=== PATIENT | female | born 1955 | race Caucasian/White ===

== ENCOUNTER 2017-07-29 16:29 | Observation (INO) | payer OTHER ==
[~2017-07-29] VITALS: Ht 160 cm; Wt 66.0 kg
[2017-07-29 16:31] VITALS: BP 166/97; PULSE 65; RESP 16; TEMP 98.5; O2SAT 98
[2017-07-29] MEDS ORDERED: MULTTAB67 PO (17:02)
[2017-07-29] MEDS ORDERED: SACC1CAP3 PO (17:02)
[2017-07-29] MEDS ORDERED: FAMO1CHW (17:02)
[2017-07-29 17:41] VITALS: BP 166/97; PULSE 65; RESP 18; TEMP 98.5; O2SAT 97; O2SAT 98
[2017-07-29] MEDS ORDERED: SODIUM CHLORIDE 0.9% FLUSH 10 ML FLUSH IVF PRN (17:45)
--- NOTE | 2017-07-29 17:54 | PD ---
HPI Chief Complaint: Cardiac Complaint Time Seen by Provider: 17:02 Travel History International Travel<30 days: No Contact w/Intl Traveler<30days: No Traveled to known affect area: No History of Present Illness HPI 62-year-old female came to the emergency room with history of chest pressure along with palpitations, bilateral upper extremity weakness, feeling of out of body experience all happening at the same time episodically over past 1 year. However patient says that this has been progressively worsening in terms of the frequency. She had these episodes 2-3 times and last one week which is far more frequent than it has been in past 1 year which has concerned her. She also has this chest pressure on the left side which has persisted which is new. Usually all the symptoms along with chest pressure goes away after 20 minutes. Her is here who had witnessed one of these episodes last night. As per him she was laying on the kitchen countertop with her arm spread out and head down and when he tried to talk to her she was not speaking. Patient says that she could hear him but she was unable to talk or communicate. Patient did talk to her primary care 6 months ago about the symptoms and the primary care has asked her to get a stress test. However patient never got to a boom pump operator. Patient is not a smoker. There is a family history of [place] history among her grandparents. [facility] Past Medical History Narrative Medical List of her past medical, surgical, social and family history is reviewed from the nursing note. Diverticulitis: Yes Kidney Stones: Yes Ulcer: Yes Tetanus Vaccination: < 5 Years Influenza Vaccination: Yes Ovarian Cysts: Yes Social History Alcohol Use: Yes (OCC) Tobacco Use: No Substance Use: No Allergies-Medications (Allergen,Severity, Reaction): Coded Allergies: oxycodone (Verified Allergy, Unknown, 07/29/17) Comments List of her allergies reviewed from the nursing note. Reported Meds & Prescriptions Reported Meds & Active Scripts Active Reported Probiotic (Saccharomyces Boulardii) 250 Mg Cap 250 Mg PO BID Acid Pharmacist In Charge Owner Complete (Raticmghpw-[id number]-[id number]) 10-800-165 mg Tab Multiple Vitamin 1 Tab 1 Tab PO DAILY Narrative Medication List of her home medications reviewed from the nursing note. Review of Systems Except as stated in HPI: all other systems reviewed are Neg HENT: Positive: Headaches Cardiovascular: Positive: Chest Pain or Discomfort, Palpitations Neurologic: Positive: Weakness Physical Exam Narrative GENERAL: Awake, alert, anxious, mild distress SKIN: Focused skin assessment warm/dry. HEAD: Atraumatic. Normocephalic. EYES: Pupils equal and round. No scleral icterus. No injection or drainage. ENT: No nasal bleeding or discharge. Mucous membranes pink and moist. NECK: Trachea midline. No JVD. Neck is supple CARDIOVASCULAR: Regular rate and rhythm. No murmur appreciated. RESPIRATORY: No accessory muscle use. Clear to auscultation. Breath sounds equal bilaterally. GASTROINTESTINAL: Abdomen soft, non-tender, nondistended. Hepatic and splenic margins not palpable. MUSCULOSKELETAL: No obvious deformities. No clubbing. No cyanosis. No edema. NEUROLOGICAL: Awake and alert. No obvious cranial nerve deficits. Motor grossly within normal limits. Normal speech. PSYCHIATRIC: Appropriate mood and affect; insight and judgment normal. Data Data Last Documented VS Orders Orders Electrocardiogram (07/29/17 17:39) Basic Metabolic Panel (Bmp) (07/29/17 17:39) Ckmb (Isoenzyme) Profile (07/29/17 17:39) Complete Blood Count With Diff (07/29/17 17:39) Magnesium (Mg) (07/29/17 17:39) Prothrombin Time / Inr (Pt) (07/29/17 17:39) Act Partial Throm Time (Ptt) (07/29/17 17:39) Troponin I (07/29/17 17:39) Chest, Single Ap (07/29/17 17:39) Ecg Monitoring (07/29/17 17:39) Bilateral Bp Monitoring (07/29/17 17:39) Iv Access Insert/Monitor (07/29/17 17:39) Oximetry (07/29/17 17:39) Oxygen Administration (07/29/17 17:39) Sodium Chloride 0.9% Flush (Ns Flush) (07/29/17 17:45) Ct Brain W/O Iv Contrast(Rout) (07/29/17 ) Ct Cerv Spine W/O Contrast (07/29/17 ) Admit Order (Ed Use Only) (07/29/17 19:48) Labs Laboratory Tests Test 07/29/17 17:15 White Blood Count 6.7 TH/MM3 Red Blood Count 4.29 MIL/MM3 Hemoglobin 13.9 GM/DL Hematocrit 40.5 % Mean Corpuscular Volume 94.3 FL Mean Corpuscular Hemoglobin 32.5 PG Mean Corpuscular Hemoglobin Concent 34.5 % Red Cell Distribution Width 12.6 % Platelet Count 226 TH/MM3 Mean Platelet Volume 8.0 FL Neutrophils (%) (Auto) 53.7 % Lymphocytes (%) (Auto) 34.4 % Monocytes (%) (Auto) 9.0 % Eosinophils (%) (Auto) 2.4 % Basophils (%) (Auto) 0.5 % Neutrophils # (Auto) 3.6 TH/MM3 Lymphocytes # (Auto) 2.3 TH/MM3 Monocytes # (Auto) 0.6 TH/MM3 Eosinophils # (Auto) 0.2 TH/MM3 Basophils # (Auto) 0.0 TH/MM3 CBC Comment DIFF FINAL Differential Comment Prothrombin Time 10.4 SEC Prothromb Time International Ratio 0.9 RATIO Activated Partial Thromboplast Time 26.8 SEC Blood Urea Nitrogen 18 MG/DL Creatinine 0.85 MG/DL Random Glucose 84 MG/DL Calcium Level 9.0 MG/DL Magnesium Level 1.9 MG/DL Sodium Level 139 MEQ/L Potassium Level 3.9 MEQ/L Chloride Level 105 MEQ/L Carbon Dioxide Level 28.1 MEQ/L Anion Gap 6 MEQ/L Estimat Glomerular Filtration Rate 68 ML/MIN Total Creatine Kinase 75 U/L Troponin I LESS THAN 0.02 NG/ML Thyroid Stimulating Hormone 3rd Gen 5.660 uIU/ML [facility] Medical Decision Making Medical Screen Exam Complete: Yes Emergency Medical Condition: Yes Medical Record Reviewed: Yes Interpretation(s) Twelve-lead EKG was reviewed by me. Normal sinus rhythm, normal axis, nonspecific ST-T wave changes. Heart rate of 60 bpm. Differential Diagnosis ACS, arrhythmia, seizure Narrative Course 7:46 PM blood test results of back and within normal limits. Chest x-ray showed left lower lobe atelectasis as per the radiologist. I have ordered CT scan of her head and C-spine. Patient has been admitted to the hospitalist service. In my opinion she should be evaluated by the boom pump operator as well as neurologist for possible cardiac and or neurologic etiology. Procedures EKG Prior to Arrival: No Diagnosis Primary Impression: Atypical chest pain Additional Impression: Near syncope Admitting Information Admitting Physician Requests: Observation Christine Peña MD Jul 29, 2017 17:54
[2017-07-29 17:57] LABS: AUTOMATED NEUTROPHIL # 3.6 TH/MM3 (1.8-7.7); BASOPHIL % 0.5 % (0.0-2.0); EOSINOPHIL # 0.2 TH/MM3 (0-0.4); EOSINOPHIL % 2.4 % (0.0-4.0); HEMATOCRIT 40.5 % (35.0-46.0); HEMO FLAGS DIFF FINAL; LYMPH % 34.4 % (9.0-44.0); LYMPHOCYTE # 2.3 TH/MM3 (1.0-4.8); MEAN CELL VOLUME 94.3 FL (80.0-100.0); MEAN CORPUSCULAR HEMOGLOBIN 32.5 PG (27.0-34.0); MEAN CORPUSCULAR HGB CONC 34.5 % (32.0-36.0); NEUT % 53.7 % (16.0-70.0); PLATELET COUNT 226 TH/MM3 (150-450); RED BLOOD COUNT 4.29 MIL/MM3 (4.00-5.30); RED CELL DISTRIBUTION WIDTH 12.6 % (11.6-17.2); WHITE BLOOD COUNT 6.7 TH/MM3 (4.0-11.0)
--- NOTE | 2017-07-29 18:06 | RADRPT ---
EXAM DATE/TIME: 07/29/2017 17:52 [facility] COMPARISON: No previous studies available for comparison. INDICATIONS : Chest pain and shortness of breath. MEDICAL HISTORY : None. SURGICAL HISTORY : None. ENCOUNTER: Initial ACUITY: 2 days PAIN SCORE: 6/10 LOCATION: Bilateral upper chest FINDINGS: There is slight hazy opacity at the lateral left lung base and minimal blunting of the gastric angle. This may reflect mild infiltrate. Right lung is clear. Cardiac contours are satisfactory for techniq ue and projection. CONCLUSION: Minimal left base pleural-parenchymal opacity Jon Encarnacion MD on July 29, 2017 at 18:03 Board Certified Radiologist. This report was verified electronically.
[2017-07-29 18:16] LABS: APTT (PATIENT) 26.8 SEC (24.3-30.1); INTERNATIONAL NORMALIZED RATIO 0.9 RATIO; PROTHROMBIN TIME - PATIENT 10.4 SEC (9.8-11.6)
[2017-07-29 18:18] LABS: ANION GAP 6 MEQ/L (5-15); BICARBONATE 28.1 MEQ/L (21.0-32.0); BLOOD UREA NITROGEN 18 MG/DL (7-18); CHLORIDE 105 MEQ/L (98-107); GLOMERULAR FILTRATION RATE 68 ML/MIN (>89); MAGNESIUM 1.9 MG/DL (1.5-2.5); POTASSIUM 3.9 MEQ/L (3.5-5.1); SODIUM (NA) 139 MEQ/L (136-145)
[2017-07-29 18:23] LABS: CREATINE KINASE 75 U/L (26-192)
--- NOTE | 2017-07-29 20:12 | RADRPT ---
EXAM DATE/TIME: 07/29/2017 19:51 [facility] COMPARISON: No previous studies available for comparison. INDICATIONS : Syncopal episodes. RADIATION DOSE: 56.35 CTDIvol (mGy) MEDICAL HISTORY : Diverticulitis. Renal calculi. SURGICAL HISTORY : None. ENCOUNTER: Initial ACUITY: 1 day PAIN SCALE: 5/10 LOCATION: cranial TECHNIQUE: Multiple contiguous axial images were obtained of the head. Using automated exposure control and adj ustment of the mA and/or kV according to patient size, radiation dose was kept as low as reasonably a chievable to obtain optimal diagnostic quality images. DICOM format image data is available electro nically for review and comparison. FINDINGS: CEREBRUM: Minimal areas of low attenuation in the white matter including right parietal lobe. The ventricles ar e normal for age. No evidence of midline shift, mass lesion, hemorrhage or acute infarction. No ext ra-axial fluid collections are seen. POSTERIOR FOSSA: The cerebellum and brainstem are intact. The 4th ventricle is midline. The cerebellopontine angle i s unremarkable. EXTRACRANIAL: The visualized portion of the orbits is intact. SKULL: The calvaria is intact. No evidence of skull fracture. CONCLUSION: Nonspecific white matter changes. No acute intracranial abnormality. Toy Townsend MD on July 29, 2017 at 20:10 Board Certified Radiologist. This report was verified electronically.
--- NOTE | 2017-07-29 20:16 | RADRPT ---
EXAM DATE/TIME: 07/29/2017 19:53 [facility] COMPARISON: No previous studies available for comparison. INDICATIONS : Syncopal episodes. Bilateral arm numbness. RADIATION DOSE: 32.08 CTDIvol (mGy) MEDICAL HISTORY : Diverticulitis. Renal calculi. SURGICAL HISTORY : None. ENCOUNTER: Initial ACUITY: 1 day PAIN SCALE: 5/10 LOCATION: Bilateral arms TECHNIQUE: Volumetric scanning of the cervical spine was performed. Multiplanar reconstructions in the sagittal, coronal and oblique axial planes were performed. Using automated exposure control and adjustment o f the mA and/or kV according to patient size, radiation dose was kept as low as reasonably achievable to obtain optimal diagnostic quality images. DICOM format image data is available electronically f or review and comparison. FINDINGS: VERTEBRAE: Normal vertebral body height. Degenerative changes. ALIGNMENT: No evidence of subluxation. C2-C3: The bony spinal canal is normal in size. No evidence of disc bulge or herniation. The neural forami na are bilaterally patent. C3-C4: The bony spinal canal is normal in size. No evidence of disc bulge or herniation. The neural forami na are bilaterally patent. C4-C5: The bony spinal canal is normal in size. No evidence of disc bulge or herniation. The neural forami na are bilaterally patent. C5-C6: Mild broad-based posterior disc osteophyte complex without canal stenosis. The neural foramina are b ilaterally patent. C6-C7: Mild broad-based posterior disc osteophyte complex without canal stenosis. The neural foramina are b ilaterally patent. C7-T1: The bony spinal canal is normal in size. No evidence of disc bulge or herniation. The neural forami na are bilaterally patent. CONCLUSION: 1. Degenerative changes. 2. No fracture. Toy Townsend MD on July 29, 2017 at 20:12 Board Certified Radiologist. This report was verified electronically.
[2017-07-29] MEDS ORDERED: SODIUM CHLORIDE 0.9% FLUSH 10 ML FLUSH IV FLUSH PRN (20:30)
[2017-07-29] MEDS ORDERED: ALPRAZolam 0.25 MG TAB PO PRN (20:30)
[2017-07-29] MEDS ORDERED: NITROGLYCERIN 0.4 MG SL 25 TABS/BTL SL PRN (20:30)
[2017-07-29 20:37] VITALS: BP 167/86; PULSE 63; RESP 14; O2SAT 96
--- NOTE | 2017-07-29 20:37 | HHI.HP ---
HPI Service [facility] Hospitalists Primary Care Physician Fatou Obregon M.D. Admission Diagnosis atypical chest pain, near-syncope Chief Complaint: light headedness, chest pain, palpitations (all intermittent) Travel History International Travel<30 Days: No Contact w/Intl Traveler <30 Da: No Traveled to Known Affected Are: No History of Present Illness 62-year-old female came to the emergency room with history of chest pressure along with palpitations, bilateral upper extremity weakness, feeling of out of body experience all happening at the same time episodically over past 9 mos to 1 yr. However patient says that this has been progressively worsening in terms of the frequency. She had these episodes 2-3 times and last one week which is far more frequent than it has been in past 1 year which has concerned her. She also has this chest pressure on the left side which has persisted which is new. Usually all the symptoms along with chest pressure goes away after 20 minutes. Her is here who had witnessed one of these episodes last night. As per him she was laying on the kitchen countertop with her arm spread out and head down and when he tried to talk to her she was not speaking. Patient says that she could hear him but she was unable to talk or communicate. Patient was evaluated for similar complaints particularly of the palpitation and near syncope character back in March of this year. EKG and chest x-ray done at that time revealed no acute findings. She was referred to cardiology that time for further evaluation but apparently has not followed through as I see no evidence in outpatient records of this. Patient is not a smoker currently but did smoke in the past. Workup done thus far in ER reveals no acute finding on CT brain or CT cervical spine. She does have some nonspecific white matter changes on CT brain. EKG with no significant abnormalities. Chest x-ray revealed some vague minimal pleural parenchymal opacity on the left. Review of outpatient chest x-ray reveals possible infiltrate on the left in July 2016 with resolution on x-ray done March 2017. Review of Systems Constitutional: COMPLAINS OF: Fatigue, Dizziness, DENIES: Diaphoretic episodes , Fever, Weight gain, Weight loss, Chills, Change in appetite, Night Sweats Eyes: COMPLAINS OF: Vision loss, DENIES: Blurred vision, Diplopia, Eye inflammation, Eye pain, Photosensitivity, Double Vision Ears, nose, mouth, throat: DENIES: Tinnitus, Hearing loss, Vertigo, Nasal discharge, Oral lesions, Throat pain, Hoarseness, Ear Pain, Running Nose, Epistaxis, Sinus Pain, Toothache, Odynophagia Respiratory: DENIES: Apneas, Cough, Snoring, Wheezing, Hemoptysis, Sputum production, Shortness of breath Cardiovascular: COMPLAINS OF: Chest pain, Palpitations, DENIES: Syncope, Dyspnea on Exertion, PND, Lower Extremity Edema, Orthopnea, Claudication Gastrointestinal: DENIES: Abdominal pain, Black stools, Bloody stools, BRB per rectum, Constipation, Diarrhea, GERD, Nausea, Reflux, Vomiting, Difficulty Swallowing, Anorexia, See HPI Musculoskeletal: COMPLAINS OF: Joint pain, Back pain Hematologic/lymphatic: DENIES: Bruising, Lymphadenopathy Immunologic/allergic: DENIES: Eczema, Urticaria Neurologic: DENIES: Abnormal gait, Headache, Localized weakness, Paresthesias, Seizures, Speech Problems, Tremor, Poor Balance Psychiatric: COMPLAINS OF: Anxiety Other Near syncope Past Family Social History Past Medical History Abdominal pain in multiple sites of unclear etiology Anemia Bacterial vaginosis Cervical radiculopathy Female pelvic pain Gastritis History of HPV test positive Dyslipidemia Near syncope Palpitations Pneumonitis Thrombocytosis with prior thrombocytopenia which has been evaluated by hematology 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 Nephrolithiasis Past Surgical History Ovarian cystectomy Labial tumor removal Reported Medications Calcium citrate 150 mg 1 capsule daily Cimetidine 200 mg 1 tablet daily Probiotic 1 capsule twice daily Allergies: Coded Allergies: oxycodone (Verified Allergy, Unknown, 07/29/17) Family History Father had cardiac arrest as the etiology of his demise Sister had asthma Sister had hypertension Social History No tobacco approximately 10 years but prior to that smoked 3/4-1 pack per day for nearly 20 years Drinks approximately 1 glass of wine 3 times a week Denies illicit drug use Lives with her fianc and her adult son and his girlfriend 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 No acute distress, alert and oriented. SKIN: No rashes, ecchymoses or lesions. Cool and dry. Lipoma right posterior shoulder HEAD: Atraumatic. Normocephalic. No temporal or scalp tenderness. EYES: Pupils equal round and reactive. Extraocular motions intact. No scleral icterus. No injection or drainage. ENT: Nose without bleeding, purulent drainage or septal hematoma. Airway patent. NECK: Trachea midline. No JVD or lymphadenopathy. Supple, nontender, no meningeal signs. No bruit. CARDIOVASCULAR: Regular rate and rhythm without murmurs, gallops, or rubs. RESPIRATORY: Clear to auscultation. Breath sounds equal bilaterally. No wheezes , rales, or rhonchi. GASTROINTESTINAL: Abdomen soft, non-tender, nondistended. No hepato-splenomegaly , or palpable masses. No guarding. MUSCULOSKELETAL: Extremities without clubbing, cyanosis, or edema. No joint tenderness, effusion, or edema noted. No calf tenderness. NEUROLOGICAL: Awake and alert. Cranial nerves II through XII intact. Motor and sensory grossly within normal limits. Five out of 5 muscle strength in all muscle groups. Normal speech. Laboratory Laboratory Tests Test 07/29/17 17:15 White Blood Count 6.7 Red Blood Count 4.29 Hemoglobin 13.9 Hematocrit 40.5 Mean Corpuscular Volume 94.3 Mean Corpuscular Hemoglobin 32.5 Mean Corpuscular Hemoglobin Concent 34.5 Red Cell Distribution Width 12.6 Platelet Count 226 Mean Platelet Volume 8.0 Neutrophils (%) (Auto) 53.7 Lymphocytes (%) (Auto) 34.4 Monocytes (%) (Auto) 9.0 Eosinophils (%) (Auto) 2.4 Basophils (%) (Auto) 0.5 Neutrophils # (Auto) 3.6 Lymphocytes # (Auto) 2.3 Monocytes # (Auto) 0.6 Eosinophils # (Auto) 0.2 Basophils # (Auto) 0.0 CBC Comment DIFF FINAL Differential Comment Prothrombin Time 10.4 Prothromb Time International Ratio 0.9 Activated Partial Thromboplast Time 26.8 Blood Urea Nitrogen 18 Creatinine 0.85 Random Glucose 84 Calcium Level 9.0 Magnesium Level 1.9 Sodium Level 139 Potassium Level 3.9 Chloride Level 105 Carbon Dioxide Level 28.1 Anion Gap 6 Estimat Glomerular Filtration Rate 68 Total Creatine Kinase 75 Troponin I LESS THAN 0.02 Result Diagram: 07/29/17 1715 07/29/17 1715 Imaging Last 72 hours Impressions Chest X-Ray 07/29/17 1739 Signed Impressions: Service Date/Time: Saturday, July 29, 2017 17:52 - CONCLUSION: Minimal left base pleural-parenchymal opacity Jon Encarnacion MD Head CT 07/29/17 0000 Signed Impressions: Service Date/Time: Saturday, July 29, 2017 19:51 - CONCLUSION: Nonspecific white matter changes. No acute intracranial abnormality. Toy Townsend MD Cervical Spine CT 07/29/17 0000 Signed Impressions: Service Date/Time: Saturday, July 29, 2017 19:53 - CONCLUSION: 1. Degenerative changes. 2. No fracture. Toy Townsend MD Caprini VTE Risk Assessment Caprini VTE Risk Assessment: No/Low Risk (score <= 1) Caprini Risk Assessment Model Point Value = 1 Point Value = 2 Point Value = 3 Point Value = 5 Age 41-60 Minor surgery BMI > 25 kg/m2 Swollen legs Varicose veins or History of unexplained or recurrent spontaneous Oral contraceptives or hormone replacement Sepsis (< 1 month) Serious lung disease, including pneumonia (< 1 month) Abnormal pulmonary function Acute myocardial infarction Congestive heart failure (< 1 month) History of inflammatory bowel disease Medical patient at bed rest Age 61-74 Arthroscopic surgery Major open surgery (> 45 min) Laparoscopic surgery (> 45 min) Malignancy Confined to bed (> 72 hours) Immobilizing plaster cast Central venous access Age >= 75 History of VTE Family history of VTE Factor V Leiden Prothrombin [id number] Lupus anticoagulant Anticardiolipin antibodies Elevated serum homocysteine Heparin-induced thrombocytopenia Other congenital or acquired thrombophilia Stroke (< 1 month) Elective arthroplasty Hip, pelvis, or leg fracture Acute spinal cord injury (< 1 month) Prophylaxis Regimen Total Risk Factor Score Risk Level Prophylaxis Regimen 0-1 Low Early ambulation 2 Moderate Order ONE of the following: *Sequential Compression Device (SCD) *Heparin 5000 units SQ BID 3-4 Higher Order ONE of the following medications: *Heparin 5000 units SQ TID *Enoxaparin/Lovenox 40 mg SQ daily (WT < 150 kg, CrCl > 30 mL/min) *Enoxaparin/Lovenox 30 mg SQ daily (WT < 150 kg, CrCl > 10-29 mL/min) *Enoxaparin/Lovenox 30 mg SQ BID (WT < 150 kg, CrCl > 30 mL/min) AND/OR *Sequential Compression Device (SCD) 5 or more Highest Order ONE of the following medications: *Heparin 5000 units SQ TID (Preferred with Epidurals) *Enoxaparin/Lovenox 40 mg SQ daily (WT < 150 kg, CrCl > 30 mL/min) *Enoxaparin/Lovenox 30 mg SQ daily (WT < 150 kg, CrCl > 10-29 mL/min) *Enoxaparin/Lovenox 30 mg SQ BID (WT < 150 kg, CrCl > 30 mL/min) AND *Sequential Compression Device (SCD) Assessment and Plan Problem List: (1) Atypical chest pain ICD Codes: R07.89 - Other chest pain Status: Acute Plan: Has been an intermittent issue over the last several months but seems to be more frequent and long lasting of late. Initial enzymes and EKG did not reveal acute injury pattern. We'll continue rule out protocol and have cardiology see the patient given her other complaints. (2) Near syncope ICD Codes: R55 - Syncope and collapse Status: Chronic Plan: As noted above. We'll have neurology evaluate the patient as well since this is recurring and seems to be a bit more frequent The periods of somewhat unresponsiveness could be consistent with a partial seizure disorder. EEG has been ordered. CT brain noted for nonspecific white matter changes and she does have some vision changes. We'll have neurology decide if further eval for possible MS is indicated as inpatient. (3) Heart palpitations ICD Codes: R00.2 - Palpitations Status: Chronic Plan: As above. Cardiology to evaluate. Code Status Full Discussed Condition With Patient and ER provider Kaleb Almeida MD PhD Jul 29, 2017 20:37
[2017-07-29] MEDS: SODIUM CHLORIDE 0.9% FLUSH 10 ML FLUSH IV FLUSH SCH (21:25)
[2017-07-29 21:40] LABS: CREATINE KINASE 66 U/L (26-192)
[2017-07-29 21:46] VITALS: BP 138/76; PULSE 60; RESP 16; TEMP 97.5; O2SAT 96
[2017-07-29 22:41] VITALS: PULSE 56
[2017-07-30] VITALS (8 sets, daily range): BP systolic 121–137; BP diastolic 72–93; PULSE 53–75; RESP 18; TEMP 97.5–98.6; O2SAT 95–98
[2017-07-30 02:43] LABS: HDL CHOLESTEROL 87.1 MG/DL (40.0-60.0); LDL CHOLESTEROL 99 MG/DL (0-99)
[2017-07-30 02:49] LABS: CREATINE KINASE 57 U/L (26-192)
--- NOTE | 2017-07-30 04:57 | EKG ---
Date Performed: 07/29/2017 Time Performed: 21:14:59 PTAGE: 62 years EKG: SINUS BRADYCARDIA Nonspecific T wave changes No significant change from prior electrocardio gram. DOCTOR: Mook Guerrero Interpretating Date/Time 07/30/2017 04:56:29
--- NOTE | 2017-07-30 05:13 | EKG ---
Date Performed: 07/29/2017 Time Performed: 17:08:27 PTAGE: 62 years EKG: Sinus rhythm NORMAL ECG NO PREVIOUS TRACING DOCTOR: Mook Guerrero Interpretating Date/Time 07/30/2017 05:13:15
--- NOTE | 2017-07-30 08:24 | MB ---
cc: ALEXANDRE BAILEY MD DATE OF CONSULTATION 07/30/2017 HISTORY This is a 62-year-old woman who comes to the emergency department with a history of chest pain, palpitations and upper extremity weakness. These episodes have been happening over the past year. When they occur, she has an episode where she has rather intense palpitations, a feeling of lightheadedness or sweating and then what she describes as a paralysis which can last as long as five minutes. No loss of consciousness has been present. She usually stops what she is doing and episodes passed and then resolve, although she has approximately 24 hours of feeling different than her usual state. These have been infrequent starting a year ago, but since March have become more frequent and over the past month have occurred three separate times. The day before yesterday, she had an episode in which she had chest discomfort which she describes as not a sharp pain, but rather a dull ache. This persisted all day and through the night and then she came to emergency department because of concern about the pain. This was somewhat associated with shortness of breath and nausea. No exertional symptoms were present and she noted nothing that would precipitate or worsen her discomfort and certainly nothing that would relieve it. She has been very active, but has cut back on her activity level over the past year. She notes that she is in a stressful job and has put off medical care. Her episode yesterday was witnessed by her who apparently tried to talked to her and she stated that she could hear him, but she could not talk or communicate with him. PAST MEDICAL HISTORY Significant for kidney stones and diverticulitis for which she was hospitalized a year ago. She did not require surgery and no recurrence of that has been present time. MEDICATIONS She takes only Pepcid for medications. She denies any history of hypertension, diabetes or hyperlipidemia. She has noted that her blood pressure historically has been quite low, but over the past year has been elevated as high as 170. SOCIAL HISTORY She is a nonsmoker. She rarely drinks. She does not use recreational drugs. WORKUP Workup in the emergency room thus far reveals no acute findings on CT of her cervical spine. She had some nonspecific white matter changes on her CT of her brain. Electrocardiogram has been essentially normal and troponins are normal x3. TSH is normal. LDL and lipid profile are a very good with an LDL 92 and HDL of 87. Chest x-ray is otherwise unremarkable. ALLERGIES None PHYSICAL EXAMINATION She is awake and alert. She is in no acute distress. VITAL SIGNS: Her blood pressure is 120/70, pulse is 50 and regular. NECK: There is no neck vein distension. LUNGS: Clear. CARDIOVASCULAR: Regular rate and rhythm with no murmur or gallop noted. ASSESSMENT The patient has very atypical symptoms which actually sound more neurologic in nature than cardiologic. Certainly has atypical chest pain. We will do a treadmill exercise test to rule out occult coronary disease. Hopefully she will also get a neurologic evaluation and further recommendations will pend the outcome of those tests. I also ordered a D-dimer although doubt seriously that she has any problems with pulmonary emboli. MD GURVINDER Weber/MATHEUS /8:03 AM /8:12 AM
[2017-07-30] MEDS: SODIUM CHLORIDE 0.9% FLUSH 10 ML FLUSH IV FLUSH SCH (08:36)
[2017-07-30] MEDS ORDERED: ASPIRIN 81 MG CHEW TAB PO SCH (09:00)
--- NOTE | 2017-07-30 09:26 | EKG ---
Date Performed: 07/30/2017 Time Performed: 02:43:01 PTAGE: 62 years EKG: SINUS BRADYCARDIA BORDERLINE ECG INTERPRETATION BASED ON A DEFAULT AGE OF 42 YEARS No signi ficant change from prior electrocardiogram. DOCTOR: Mook Guerrero Interpretating Date/Time 07/30/2017 09:24:21
--- NOTE | 2017-07-30 11:29 | RADRPT ---
EXAM DATE/TIME: 07/30/2017 10:41 [facility] COMPARISON: No previous studies available for comparison. INDICATIONS : Syncope. MEDICAL HISTORY : Ulcer. Ovarian cysts. Kidney stones. SURGICAL HISTORY : None. ENCOUNTER: Initial ACUITY: 3 weeks PAIN SCORE: 4/10 LOCATION: Bilateral neck PEAK SYSTOLIC VELOCITIES (cm/sec): ICA/CCA RATIO: Right: 1.3 Left: 1.1 ICA: Right: 84 Left: 107 CCA: Right: 64 Left: 97 ECA: Right: 60 Left: 71 VERTEBRAL: Right: 59 antegrade Left: 62 antegrade Elevated flow velocities and ICA/CCA ratios have been found to correlate with increased degrees of vessel stenosis, calculated as percentage of diameter relative to a normal segment of distal ICA/CCA FINDINGS: RIGHT CAROTID: No significant stenosis is visualized. The waveforms are within normal limits. LEFT CAROTID: No significant stenosis is visualized. The waveforms are within normal limits. VERTEBRAL ARTERIES: Antegrade flow is seen in both vertebral arteries. MISCELLANEOUS: None. CONCLUSION: Negative for hemodynamically significant stenosis.. Rubio Degroot MD FACR on July 30, 2017 at 11:26 Board Certified Radiologist. This report was verified electronically.
--- NOTE | 2017-07-30 12:32 | HHI.PR ---
Subjective Remarks Pt complains of a headache which she has had since her last episode two evenings ago She reports that for the last year she has intermittently had episodes where she develops palpitations, followed by nausea, tunnel vision (like she is going to pass out) and then develops a "paralysis" of bilateral upper extremities. She states that this paralysis starts in her upper back and spreads across both upper extremities until they feel like " weight" and she can't move them These episodes last typically anywhere from 5-7 minutes and then dissipate She is aware of what's going on during these episodes but feels "frozen" She can hear what's going on around her but does not interact with anyone Pt states that these episodes typically occur while she is standing. After most, but not all these episodes, she will have a significant headache that starts in the neck and radiates up the back of her head to the front of her forehead, neglecting the sides of the head These episodes have occurred very sporadically but in the last week she has had three episodes which is much more often than it had occurred previously With the last episode she had associated chest pressure and this is what prompted her to go to the ED for evaluation. Pt has been seen by Cardiology and is planned for stress testing, although unlikely to be cardiac in nature. Objective Vitals Vital Signs Date Time Temp Pulse Resp B/P (MAP) Pulse Ox O2 Delivery O2 Flow Rate FiO2 07/30/17 11:14 97.5 59 18 121/72 (88) 95 07/30/17 10:23 62 07/30/17 09:08 97 07/30/17 08:12 98.4 75 18 137/80 (99) 98 07/30/17 05:11 53 07/30/17 04:49 97.8 61 18 125/73 (90) 97 07/30/17 02:11 98.6 57 18 128/79 (95) 97 125/89 (101) 130/93 (105) 07/30/17 00:12 53 07/29/17 22:41 56 07/29/17 21:46 97.5 60 16 138/76 (96) 96 07/29/17 21:37 07/29/17 20:37 63 14 167/86 (113) 96 Room Air 07/29/17 17:41 98.5 65 18 166/97 (120) 98 Room Air 07/29/17 17:41 98 Room Air 07/29/17 17:41 98.5 65 18 166/97 (120) 97 Room Air 07/29/17 16:56 20 Room Air 07/29/17 16:31 98.5 65 16 166/97 (120) 98 Room Air Result Diagram: 07/29/17 1715 07/29/17 1715 Other Results Laboratory Tests Test 07/29/17 17:15 07/29/17 20:30 07/30/17 02:08 07/30/17 11:30 White Blood Count 6.7 TH/MM3 Red Blood Count 4.29 MIL/MM3 Hemoglobin 13.9 GM/DL Hematocrit 40.5 % Mean Corpuscular Volume 94.3 FL Mean Corpuscular Hemoglobin 32.5 PG Mean Corpuscular Hemoglobin Concent 34.5 % Red Cell Distribution Width 12.6 % Platelet Count 226 TH/MM3 Mean Platelet Volume 8.0 FL Neutrophils (%) (Auto) 53.7 % Lymphocytes (%) (Auto) 34.4 % Monocytes (%) (Auto) 9.0 % Eosinophils (%) (Auto) 2.4 % Basophils (%) (Auto) 0.5 % Neutrophils # (Auto) 3.6 TH/MM3 Lymphocytes # (Auto) 2.3 TH/MM3 Monocytes # (Auto) 0.6 TH/MM3 Eosinophils # (Auto) 0.2 TH/MM3 Basophils # (Auto) 0.0 TH/MM3 CBC Comment DIFF FINAL Differential Comment Prothrombin Time 10.4 SEC Prothromb Time International Ratio 0.9 RATIO Activated Partial Thromboplast Time 26.8 SEC Blood Urea Nitrogen 18 MG/DL Creatinine 0.85 MG/DL Random Glucose 84 MG/DL Calcium Level 9.0 MG/DL Magnesium Level 1.9 MG/DL Sodium Level 139 MEQ/L Potassium Level 3.9 MEQ/L Chloride Level 105 MEQ/L Carbon Dioxide Level 28.1 MEQ/L Anion Gap 6 MEQ/L Estimat Glomerular Filtration Rate 68 ML/MIN Total Creatine Kinase 75 U/L 66 U/L 57 U/L Troponin I LESS THAN 0.02 NG/ML LESS THAN 0.02 NG/ML LESS THAN 0.02 NG/ML Thyroid Stimulating Hormone 3rd Gen 5.660 uIU/ML Triglycerides Level 68 MG/DL Cholesterol Level 200 MG/DL LDL Cholesterol 99 MG/DL HDL Cholesterol 87.1 MG/DL Cholesterol/HDL Ratio 2.29 RATIO D-Dimer Quantitative (PE/DVT) 0.23 MG/L FEU Imaging Last Impressions Carotid Artery Ultrasound 07/30/17 0000 Signed Impressions: Service Date/Time: Sunday, July 30, 2017 10:41 - CONCLUSION: Negative for hemodynamically significant stenosis.. Rubio Degroot MD FACR Chest X-Ray 07/29/17 1739 Signed Impressions: Service Date/Time: Saturday, July 29, 2017 17:52 - CONCLUSION: Minimal left base pleural-parenchymal opacity Jon Encarnacion MD Head CT 07/29/17 0000 Signed Impressions: Service Date/Time: Saturday, July 29, 2017 19:51 - CONCLUSION: Nonspecific white matter changes. No acute intracranial abnormality. Toy Townsend MD Cervical Spine CT 07/29/17 0000 Signed Impressions: Service Date/Time: Saturday, July 29, 2017 19:53 - CONCLUSION: 1. Degenerative changes. 2. No fracture. Toy Townsend MD Objective Remarks General: NAD, AAOx3 Chest: CTA Cardiac: Regular Abd: +BS, soft ND/NT Ext: No edema, pt with a soft tissue mass in the right trapezius muscle area A/P Problem List: (1) Atypical chest pain ICD Codes: R07.89 - Other chest pain Status: Acute Plan: Pt is a 62 y/o female who presented with complains that for the last year she has intermittently had episodes where she develops palpitations, followed by nausea, tunnel vision (like she is going to pass out) and then develops a "paralysis" of bilateral upper extremities. She states that this paralysis starts in her upper back and spreads across both upper extremities until they feel like " weight" and she can't move them. These episodes last typically anywhere from 5-7 minutes and then dissipate on their own. She is aware of what's going on during these episodes but feels "frozen." She can hear what's going on around her but does not interact with anyone. Pt states that these episodes typically occur while she is standing. After most, but not all these episodes, she will have a significant headache that starts in the neck and radiates up the back of her head to the front of her forehead, neglecting the sides of the head. These episodes have occurred very sporadically but in the last week she has had three episodes which is much more often than it had occurred previously. With the last episode she had associated chest pressure and this is what prompted her to go to the ED for evaluation. Atypical chest pain Palpitations - Serial CE are negative. 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 - D-Dimer was negative. - 2D echo is ordered - Telemetry - ASA - Nitro PRN Upper extremity paresthesias, episodic Headache ?Soft tissue mass on right trapezius area, etiology unclear - Etiology unclear - EEG has been ordered. - CT brain noted for nonspecific white matter changes - Orthostatic BP ordered, has not been done yet. - Cervical spine CT noted degenerative changes - Neurology has been consulted - MRI Cervical spine - Consider soft tissue CT vs. US of the mass in the right trapezius area - Pt has been under a lot of increased stress over the last year as well with work, ?psych related symptoms DVT prophylaxis with SCDs (2) Near syncope ICD Codes: R55 - Syncope and collapse Status: Chronic Plan: - As above (3) Heart palpitations ICD Codes: R00.2 - Palpitations Status: Chronic Plan: - As above Assessment and Plan Patient examined. Assessment and plan formulated with Vianey Hicks PA-C. I agree with the above. I spent an hour with this patient. reviewed the labs and radiology studies. I spoke with cardiology and neurology about the test results. nothing on the tests that we have results for that show etiology of her sx's. Dr Wells wanted her to stay for final eeg. During the interview I asked the patient about depression and anxiety in her life. I repeatedly stated I was not diagnosing her with this but it was mentioned by others who have evaluated her. She became quite upset with me and no amount of clarification could satisfy her. I offered her another doctor and she initially accepted. After I discussed her case with David she changed her mind and wants to go home. I encouraged her to f/u with Dr Wells and pcp and she will. Vianey Hicks Jul 30, 2017 12:32 Tio Blake MD Jul 30, 2017 18:17
--- NOTE | 2017-07-30 15:02 | MB ---
cc: ADRIEL BENAVIDEZ M.D. DATE OF CONSULTATION: 07/30/2017 DATE OF : 1955 REASON FOR CONSULTATION Paresthesias. HISTORY OF PRESENT ILLNESS The patient is a pleasant 62-year-old woman who comes in with chest pressure, palpitations, some paresthesias coming from her neck, has had events where she felt near syncope, one time she was looking up at some balloons and she felt it coming on. She gets this funny sensation in her neck and it goes up into her head. But she had an event the other night where she lost the ability to speak. She did hear everything but was unable to move, she was lying down when this occurred, lasted for about 5 minutes or so and when she came out of it she was back to baseline, she knew who she was, where she was but just had a severe headache and very fatigued. There was no shaking, there was no incontinence of urine, no tongue biting. PAST MEDICAL HISTORY 1. Abdominal pain. 2. Diverticulitis/losis. 3. Cervical radiculopathy. 4. HPV. 5. Dyslipidemia. 6. Near syncope. 7. Palpitations. 8. Thrombocytosis with prior thrombocytopenia. 9. Nephrolithiasis. MEDICATION Home medicines: 1. Calcium. 2. Famotidine. 3. Probiotics. ALLERGIES OXYCODONE. FAMILY HISTORY Heart disease in the father, cardiac arrest. Sister with asthma and other sister with hypertension. SOCIAL HISTORY Quit smoking, last cigarette over 10 years ago, smoked for about 20 years. Drinks maybe one glass of wine three times a week. No illicit drugs. Lives with her fiance. She has a Masters in [employer], worked for [employer]. PHYSICAL EXAMINATION VITAL SIGNS: Temperature is 97.5, pulse 59, respiratory rate 18, blood pressure 121/72, sating at 95% on room air. NECK: Neck is supple. I do not appreciate any bruits. HEART: Her heart is regular. NEURO: She is awake, alert. She is oriented. She is fluent. Pupils reactive. Visual gilbert full. Face symmetrical. Tongue midline. Cervical spine: She seems that she has a lipoma over the right paracervical region near the trapezius area, nontender. No redness. Motor: She has adequate strength throughout without any drift or leg lag. Cerebellar testing is normal. Toes are downgoing. DTRs are 1-2+. Sensory is normal. Gait is withheld at this time. LABORATORY DATA CBC is normal. Coag panel is intact. Chemistries: The cardiac enzymes were negative. Cholesterol 200, triglycerides 68, LDL 99, HDL 87.1, TSH is 5.660, GFR 68. The rest of the chemistries were normal. IMAGING STUDIES Carotid ultrasound negative for any stenosis. Chest x-ray showed minimal left pleural opacity. CT spine showed degenerate changes. CT head showed nonspecific white matter change. IMPRESSION Possible near-syncope, possible seizure and possible TIA-like event, difficult to tell at this point in time. She already has a cervical spine on order, MRI and I am going to add an MRI of the brain and [id number]. EEG was completed, we will see what that shows. Stress test is pending. Monitor her heart rate. If workup is negative, I would consider either a loop recorder or a prolonged event/Holter monitor since her etiology at that point would be unclear. Continue current recommendations. MD RAYO Sauer/MICHELLE /2:11 PM /2:21 PM
--- NOTE | 2017-07-30 15:42 | RADRPT ---
EXAM DATE/TIME: 07/30/2017 15:04 [facility] COMPARISON: No previous studies available for comparison. INDICATIONS : Episodes of paralysis of bilateral upper extremities. MEDICAL HISTORY : Hypertension. SURGICAL HISTORY : Ovarian cyst removed. Fallopian tube repair. Labia tumor removed. ENCOUNTER: Subsequent ACUITY: 2 day PAIN SCORE: 2/10 LOCATION: neck Please note a normal MRA of the brain does not entirely exclude the possibility of a small aneurysm, nor the possibility of distal intracranial vessel disease. TECHNIQUE: 3D time of flight MRA was performed. Source images, multiplanar STS MIP, and 3D volume MIP reconstru ctions were reviewed. FINDINGS: There is excellent visualization of the major intracranial arteries out to the second-order branch ve ssels. There is no evidence for aneurysm, vessel truncation or stenosis, and no evidence for vascula r malformation. CONCLUSION: Normal examination. Fausto Fernández Jr., MD on July 30, 2017 at 15:39 Board Certified Radiologist. This report was verified electronically.
--- NOTE | 2017-07-30 15:45 | RADRPT ---
EXAM DATE/TIME: 07/30/2017 15:04 [facility] COMPARISON: CT BRAIN W/O CONTRAST, July 29, 2017, 19:51. INDICATIONS : Episodes of paralysis of bilateral upper extremities. MEDICAL HISTORY : Hypertension. SURGICAL HISTORY : Ovarian cyst removed. Fallopian tube repair. Labia tumor removed. ENCOUNTER: Subsequent ACUITY: 2 day PAIN SCORE: 2/10 LOCATION: neck TECHNIQUE: Multiplanar, multisequence MRI of the brain was performed without contrast. FINDINGS: CEREBRUM: The ventricles are normal for age. No evidence of midline shift, mass lesion, hemorrhage or acute in farction. No extraaxial fluid collections are seen. The pituitary gland and suprasellar cistern are normal in configuration. WHITE MATTER: A few small scattered foci of high flair signal involving the subcortical white matter of both cerebr al hemispheres. No significant involvement of the periventricular white matter. POSTERIOR FOSSA: The cerebellum and brainstem are intact. The 4th ventricle is midline. The cerebellopontine angle is unremarkable. The cerebellar tonsils are normal in position. DIFFUSION IMAGING: No focal areas of restricted diffusion are seen. No evidence of acute infarction. EXTRACRANIAL: The visualized portions of the orbits and paranasal sinuses are unremarkable. CONCLUSION: 1. No acute intracranial abnormality. 2. Tiny nonspecific white matter lesions involving both cerebral hemispheres. These likely relate to chronic small vessel ischemic change. Fausto Fernández Jr., MD on July 30, 2017 at 15:40 Board Certified Radiologist. This report was verified electronically.
--- NOTE | 2017-07-30 16:28 | RADRPT ---
EXAM DATE/TIME: 07/30/2017 15:04 [facility] COMPARISON: No previous studies available for comparison. INDICATIONS : Radiculopathy. Episodes of paralysis of bilateral upper extremities. MEDICAL HISTORY : Hypertension. SURGICAL HISTORY : Ovarian cyst removed. Fallopian tube repair. Labia tumor removed. ENCOUNTER: Subsequent ACUITY: 2 day PAIN SCORE: 2/10 LOCATION: Neck. TECHNIQUE: Multiplanar, multisequence MRI examination of the cervical spine was performed. FINDINGS: VERTEBRAE: Normal vertebral body height. Homogeneous marrow signal. ALIGNMENT: No evidence of subluxation. CORD: Normal configuration and signal. POST FOSSA: The cerebellar tonsils are normal in position. C2-C3: The thecal sac has a normal configuration. There is no evidence of disc herniation or spinal canal s tenosis. The neural foramina are patent bilaterally. C3-C4: Disc desiccation with minimal loss of height. A mild broad-based bulge. No abutment of the cord or ce ntral canal stenosis. Neural foramina are patent. C4-C5: Disc desiccation with disc space narrowing and mild broad-based bulge. No abutment of the cord or deyanira tral canal stenosis. Mild narrowing of the right neural foramen due to bony uncovertebral hypertrophy . Left is patent. C5-C6: Disc desiccation with disc space narrowing and mild broad-based bulge. No abutment of the cord or deyanira tral canal stenosis. Bony uncovertebral hypertrophy generates moderate left and mild right neural for aminal narrowing. C6-C7: Disc desiccation and mild disc space narrowing with broad-based disc bulge. No abutment of the cord o r central canal stenosis. Bony uncovertebral hypertrophy generates severe left and mild right neural foraminal narrowing. C7-T1: The thecal sac has a normal configuration. There is no evidence of disc herniation or spinal canal s tenosis. The neural foramina are patent bilaterally. CONCLUSION: 1. Multilevel degenerative changes without central canal stenosis. There are multiple areas of neural foraminal narrowing as detailed at each level in the above discussion. Fausto Fernández Jr., MD on July 30, 2017 at 16:23 Board Certified Radiologist. This report was verified electronically.
--- NOTE | 2017-07-30 16:47 | TR ---
Date Performed: 07/30/2017 Time Performed: 16:15:27 DOCTOR: Cash Bobby DRUG LIST: CLINICAL HISTORY: REASON FOR TEST: Chest pain REASON FOR ENDING: OBSERVATION: CONCLUSION: YESSENIA PROTOCOL. NO CP. TEST STOPPED AFTER EXCEEDING GOAL HR SECONDARY TO SOB AND LEG FATIGUE. COMMENTS: Patient exercised using the Yessenia protocol. No electrocardiographic changes were seen to suggest ischemia. Hemodynamic response to exercise was normal. No significant arrhythmia was prese nt.
--- NOTE | 2017-07-30 18:02 | MG ---
cc: SACHIN TRUJILLO MD Lab No: Date: 07/30/2017 Age: Sex: F Race: ELECTROENCEPHALOGRAM RECORD NUMBER [id number] DATE OF 1955 HISTORY A 62-year-old female with a history of out of body experience, weakness. DESCRIPTION Increased beta frequencies noted throughout the recording. Background 9-14 Hz activity. Good EEG variability reactivity attenuation of the background with transition into drowsy state. Attenuation generalized slowing transition into drowsy state and a transient T3 epoch 95. INTERPRETATION Mild nonspecific changes noted above, increased beta frequencies, otherwise stable awake sleep EEG. Clinical correlation. Sachin Trujillo MD MG/KK /4:28 PM /1:18 PM
--- NOTE | 2017-07-30 18:13 | HHI.DCPOC ---
Discharge Care Plan Diagnosis: (1) Heart palpitations (2) Atypical chest pain (3) Near syncope (4) Paresthesia Goals to Promote Your Health * To prevent worsening of your condition and complications * To maintain your health at the optimal level Directions to Meet Your Goals Take your medications as prescribed Follow your dietary instruction Follow activity as directed Keep your appointments as scheduled Take your immunizations and boosters as scheduled If your symptoms worsen call your PCP, if no PCP go to Urgent Care Center or Emergency Room Smoking is Dangerous to Your Health. Avoid second hand smoke Call the 24-hour hour crisis hotline for domestic abuse at Vianey Hicks Jul 30, 2017 18:12
== END 2017-07-30 19:26 | disposition home or self-care (01) ==
LOC: NEPC 16:29 → NEDA 19:49 → NEPHCDU 21:12
PROVIDERS: ADMIT Hospitalist; ATTEND Hospitalist
DX: R07.89 Other chest pain (principal); R00.2 Palpitations; R55 Syncope and collapse; R20.2 Paresthesia of skin; E78.5 Hyperlipidemia, unspecified; J98.11 Atelectasis; Z87.442 Personal history of urinary calculi; Z87.891 Personal history of nicotine dependence
CPT/HCPCS: 70450; 70544; 70551; 71010; 72125; 72141; 80048; 80061; 82550; 83735; 84439; 84443; 84484; 85025; 85379; 85610; 85730; 93005; 93017; 93880; 95819; 99285; G0378